=== PATIENT | female | born 1970 | race Caucasian/White ===

== ENCOUNTER 2021-02-12 06:21 | Day surgery (SDC) | payer SELFPAY ==
[2021-02-12 07:11] VITALS: BMI 20.2
[2021-02-12] MEDS ORDERED: PROPOFOL 20 ML ONE (07:14)
[2021-02-12] MEDS ORDERED: ONDANSETRON 4 MG/2 ML VIAL ONE ×2 (07:14→12:13)
[2021-02-12] MEDS ORDERED: KETOROLAC TROMETHAMINE 30 MG/1 ML VIAL ONE (07:14)
[2021-02-12] MEDS ORDERED: DEXAMETHASONE SOD PHOSPHATE 4 MG/1 ML VIAL ONE (07:14)
[2021-02-12] MEDS ORDERED: ceFAZolin SODIUM 1 GM VIAL ONE ×5 (07:14→11:44)
[2021-02-12] MEDS ORDERED: LIDOCAINE HCL/PF 2% SDV 5ML VIAL ONE (07:14)
[2021-02-12] MEDS ORDERED: MIDAZOLAM HCL 2 MG/2 ML SINGLE DOSE VIAL ONE ×2 (07:15)
[2021-02-12] MEDS ORDERED: GENTAMICIN SO4 80 MG/2 ML VIAL ONE ×3 (07:32→11:44)
[2021-02-12] MEDS ORDERED: oxyCODONE HCL 5 MG TABLET PO PRN ×2 (07:33)
[2021-02-12] MEDS ORDERED: ONDANSETRON 4 MG/2 ML VIAL IVPUSH PRN (07:33)
[2021-02-12] MEDS ORDERED: ACETAMINOPHEN INJECTION 100 ML IVPB ONE ×2 (07:34→09:43)
[2021-02-12] MEDS ORDERED: LACTATED RINGERS SOLUTION 1,000 ML IV SCH (07:45)
[2021-02-12 07:47] LABS: HEMOGLOBIN 8.1 GM/dl (10.7-15.3); MCHC 29.8 g/dl (32.0-36.0); MEAN CELL VOLUME 64.3 fl (80-96); MEAN PLT VOLUME 8.1 fl (7.5-11.1); PLATELET COUNT 273 10^3/uL (134-434); RDW 16.5 % (11.6-15.6); WHITE BLOOD COUNT 5.4 K/mm3 (4.0-10.8)
[2021-02-12 07:53] LABS: MCH 19.2 pg (25.7-33.7)
[2021-02-12] MEDS ORDERED: BUPIVACAINE HCL/PF 2.5 MG/ML - 30 ML VIAL IJ ONE (09:17)
[2021-02-12] MEDS ORDERED: LIDOCAINE 1%/EPI 1:100000 (20 ML MULTI DOSE VIAL) ONE (09:18)
[2021-02-12] MEDS ORDERED: HYDROmorphone HCL/PF 1 MG/ML VIAL ONE (10:29)
[2021-02-12] MEDS ORDERED: PROMETHAZINE HCL 25 MG/1 ML VIAL ONE (13:20)
[2021-02-12] MEDS ORDERED: PROMETHAZINE HCL 25 MG/1 ML VIAL IVPUSH PRN (13:22)
[2021-02-12 14:04] VITALS: TEMP 97.7
[2021-02-12 15:22] VITALS: BP 103/63; PULSE 96
== END 2021-02-12 16:18 | disposition home or self-care (01) ==
LOC: FASU 06:21
PROVIDERS: ATTEND Surgery
PROC: 0H0V0JZ Alteration of Bilateral Breast with Synthetic Substitute, Open Approach (ICD-10-PCS; principal; 2021-02-12 10:02)
DX: Z41.1 Encounter for cosmetic surgery (principal); N64.82 Hypoplasia of breast
CPT/HCPCS: 36415; 81025; 85027; 94760; J0131